=== PATIENT | male | born 1990 | race Caucasian/White ===

== ENCOUNTER 2017-07-07 00:35 | Emergency (ER) | payer MEDICAID, OTHER ==
[2017-07-07 00:47] VITALS: RESP 16; TEMP 99.6; O2SAT 100
[2017-07-07 01:16] LABS: BASO # 0.1 K/uL (0.0-0.2); BASO % 1.2 % (0.0-2.0); EOS # 0.2 K/uL (0.0-0.7); HEMOGLOBIN 15.2 g/dL (12.0-18.0); LYMPH # 2.1 K/uL (1.0-4.3); LYMPH % 28.4 % (20.0-40.0); MEAN CORPUSCULAR HEMOGLOBIN 27.7 pg (27.0-31.0); MEAN CORPUSCULAR HGB CONC 33.7 g/dL (33.0-37.0); MEAN PLATELET VOLUME 8.8 fl (7.2-11.7); MONO # 0.6 K/uL (0.0-0.8); MONO % 8.2 % (0.0-10.0); NEUT # 4.5 K/uL (1.8-7.0); NEUT % 60.2 % (50.0-75.0); NRBC % 0.1 % (0.0-0.0); RBC 5.51 Mil/uL (4.40-5.90); RED CELL DISTRIBUTION WIDTH 13.1 % (11.5-14.5); WHITE BLOOD COUNT 7.5 K/uL (4.8-10.8)
[2017-07-07] MEDS ORDERED: Sodium Chloride 0.9% 1,000 ML IV STA (01:17)
[2017-07-07 01:25] LABS: ALB/GLOB RATIO 1.6 (1.0-2.1); ALBUMIN 4.9 g/dL (3.5-5.0); ALT/SGPT 59 U/L (21-72); AST/SGOT 39 U/L (17-59); BLOOD UREA NITROGEN 18 mg/dl (9-20); CALCIUM 9.7 mg/dL (8.4-10.2); GFR AFRICAN-AMERICAN > 60; GFR NON-AFRICAN AMERICAN > 60
--- NOTE | 2017-07-07 02:17 | ED PDOC ---
Syncope/Near Syncope/Dizziness Time Seen by Provider: 07/07/17 00:50 Chief Complaint (Nursing): Dizziness/Lightheaded Chief Complaint (Provider): Near Syncopal Episode History Per: Patient, Other (Friends) History/Exam Limitations: no limitations Onset/Duration Of Symptoms: Mins (x30) Current Symptoms Are (Timing): Still Present Activity At Onset Of Symptoms: Other (Crying at the time) Associated Symptoms Preceding Syncopal Episode: No Predromal Symptoms (Sudden Onset) Seizure Or Post-ictal Symptoms: None Fall Associated With With Symptoms: No Additional Complaint(s): 26 year old male presents to ED with complaints of lightheadedness/dizziness x30 minutes and 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 Patient reports x1 episode of dizziness as well as the sensation that he was going to "pass out". Friends state patient was crying at the time of onset and note (+) poor appetite and sleep pattern x4 days. Friends report patient broke up with girlfriend of 1 year and has been less engaged/withdrawn since then. Patient denies suicidal/homicidal ideation or hallucinations. PCP: None - Symptoms Of CVA Recent Head Trauma: No Past Medical History Reviewed: Historical Data, Nursing Documentation, Vital Signs Vital Signs: Last Vital Signs Temp 99.6 F 07/07/17 00:43 Pulse 92 H 07/07/17 00:43 Resp 16 07/07/17 00:43 BP 150/100 H 07/07/17 00:43 Pulse Ox 100 07/07/17 00:43 - Medical History PMH: No Chronic Diseases - Surgical History Surgical History: Tonsillectomy - Family History Family History: States: No Known Family Hx - Living Arrangements Living Arrangements: With Friends/Others - Social History Current smoker - smoking cessation education provided: Yes (Usually smokes x1-5 cigarettes a day.) SMOKER/PACKS PER DAY:: 1 ( Now smokes 1 pack per day since break up with girlfriend ) Ex-Smoker (has not smoked in the last 12 months): No Alcohol: Occasional Drugs: Denies - Home Medications Home Medications: Ambulatory Orders Medication Instructions Recorded No Known Home Med 07/07/17 - Allergies Allergies/Adverse Reactions: Allergies Allergy/AdvReac Type Severity Reaction Status Date / Time No Known Allergies Allergy Verified 07/07/17 00:46 Review of Systems ROS Statement: Except As Marked, All Systems Reviewed And Found Negative Constitutional: Positive for: Other ((+) poor sleep pattern) Gastrointestinal: Positive for: Other ((+) poor appetite) Neurological: Positive for: Dizziness Psych: Negative for: Psychosis, Suicidal ideation Physical Exam - Reviewed Nursing Documentation Reviewed: Yes Vital Signs Reviewed: Yes - Physical Exam Appears: Positive for: Non-toxic, No Acute Distress Head Exam: Positive for: ATRAUMATIC, NORMOCEPHALIC Skin: Positive for: Normal Color, Warm, Dry Eye Exam: Positive for: Normal appearance, EOMI, PERRL ENT: Negative for: Normal ENT Inspection (Tacky mucous membranes) Neck: Positive for: Normal, Painless ROM, Supple Cardiovascular/Chest: Positive for: Regular Rate, Rhythm, Tachycardia. Negative for: Murmur Respiratory: Positive for: Normal Breath Sounds. Negative for: Respiratory Distress Gastrointestinal/Abdominal: Positive for: Normal Exam, Soft. Negative for: Tenderness Back: Positive for: Normal Inspection Extremity: Positive for: Normal ROM. Negative for: Deformity Neurologic/Psych: Positive for: Alert, Oriented, Mood/Affect (flat affect). Negative for: Motor/Sensory Deficits - Laboratory Results Result Diagrams: 07/07/17 01:08 07/07/17 01:08 - ECG O2 Sat by Pulse Oximetry: 100 (RA) Pulse Ox Interpretation: Normal Medical Decision Making Medical Decision Makin Initial impression: near syncopal episode in setting of emotional distress Initial plan: * EKG * EtOH serum * Labs * UDrug screen * Crisis eval * NS IV * Accucheck 0315 Labs reviewed: no clinically significant abnormalities. Patient reports improvement in symptoms. Crisis deems patient stable for discharge home. Dx: Adjustment disorder, anxiety Patient referred to [facility] for follow up. Scribe Attestation: Documented by Mariposa Sousa acting as a scribe for Immanuel Mayo MD. Scribe Attestation: All medical record entries made by the Scribe were at my direction and personally dictated by me. I have reviewed the chart and agree that the record accurately reflects my personal performance of the history, physical exam, medical decision making, and the department course for this patient. I have also personally directed, reviewed, and agree with the discharge instructions and disposition. Disposition - Clinical Impression Clinical Impression: Anxiety, Adjustment disorder - Patient ED Disposition Is Patient to be Admitted: No Counseled Patient/Family Regarding: Studies Performed, Diagnosis, Need For Followup - Disposition Referrals: [facility] [Outside] Disposition: Routine/Home Disposition Time: 03:15 Condition: STABLE Instructions: Stress (ED) Forms: [employer] (Lao)
[2017-07-07 02:27] VITALS: BP 132/86; PULSE 86
--- NOTE | 2017-07-07 16:05 | CARD ---
APPROVED REPORT EKG Measurement Heart [id number] <Conclusion> Normal sinus rhythm Normal ECG
== END 2017-07-07 04:08 | disposition home or self-care (01) ==
LOC: H.ER 00:35
DX: F41.9 Anxiety disorder, unspecified (principal); F43.20 Adjustment disorder, unspecified